=== PATIENT | female | born 1975 | race African-American/Black ===

== ENCOUNTER → 2016-07-19 | Outpatient (CLI) | payer BC ==
[~2016-07-19] MED LIST: ADVIL 200MG TA200 MG PO; AMOXICILLIN 50500 MG PO; BUPROPRION; IRON325 MG PO; LOPRESSOR 225 MG/TAB PO; NAPROSYN500 MG PO; NO HOME MEDICATIONS; NORCO 325 MG-51 TAB PO; NORCO 325 MG-7.1 TAB PO; PRINZIDE 25 MG-1 TAB PO
== END ==
LOC: MC.RAD 12:48
DX: Z12.31 Encounter for screening mammogram for malignant neoplasm of breast (principal)

== ENCOUNTER 2017-01-10 18:39 | Emergency (ER) | payer BC ==
[~2017-01-10] VITALS: Ht 165.1 cm; Wt 96.4 kg
[~2017-01-10 18:39] MED LIST changes: -NAPROSYN500 MG PO
[2017-01-10 18:47] VITALS: BP 138/80; TEMP 99
[2017-01-10] MEDS ORDERED: NAPROSYN500 MG PO (20:24)
[2017-01-10] MEDS ORDERED: NORCO 325 MG-51 TAB PO (20:35)
[2017-01-10 20:37] VITALS: PULSE 71
== END 2017-01-10 20:43 | disposition home or self-care (01) ==
LOC: COL.ER 18:39
DX: M77.11 Lateral epicondylitis, right elbow (principal); I10 Essential (primary) hypertension; Z90.710 Acquired absence of both cervix and uterus

== ENCOUNTER 2017-03-21 14:30 | Outpatient (RCR) | payer BC ==
[~2017-03-21 14:30] MED LIST changes: +NAPROSYN500 MG PO
== END 2017-03-23 08:57 ==
LOC: WSPT 14:30
DX: M77.11 Lateral epicondylitis, right elbow (principal)

== ENCOUNTER → 2017-09-22 | Outpatient (CLI) | payer BC | LOC: MC.RAD 08:31 | DX: Z12.31 Encounter for screening mammogram for malignant neoplasm of breast (principal) ==

== ENCOUNTER 2017-09-25 09:00 | Outpatient (RCR) | payer BC | END 2017-09-28 12:43 | disposition home or self-care (01) | LOC: WSOT 09:00 | DX: M79.641 Pain in right hand (principal); M79.642 Pain in left hand; R20.0 Anesthesia of skin; R20.2 Paresthesia of skin | CPT/HCPCS: G8988-GO; G8989-GO ==

== ENCOUNTER → 2018-02-15 | Outpatient (CLI) | payer BC ==
[~2018-02-15] MED LIST changes: +ALLEGRA ALLERGY60 MG PO; +FLONASE NASAL S16 GM NS
== END ==
LOC: COL.RAD 02-09 12:30
DX: M51.17 Intervertebral disc disorders with radiculopathy, lumbosacral region (principal); M99.73 Connective tissue and disc stenosis of intervertebral foramina of lumbar region

== ENCOUNTER 2020-01-05 18:09 | Emergency (ER) | payer BC, OTHER ==
[~2020-01-05] VITALS: Ht 165.1 cm; Wt 115.5 kg
[2020-01-05 19:13] VITALS: TEMP 98.5
[2020-01-05 20:56] VITALS: BP 158/102; PULSE 85
== END 2020-01-05 20:58 | disposition home or self-care (01) ==
LOC: COL.ER 18:09
DX: M54.5 Low back pain (principal)

== ENCOUNTER 2023-09-21 20:07 | Emergency (ER) | payer BC ==
[~2023-09-21] VITALS: Ht 162.6 cm; Wt 113.6 kg
[2023-09-21 20:40] LABS: BASO % 0.3 % (0.0-2.0); EOS # 0.3 K/mm3 (0.0-0.7); GRAN # 3.4 K/mm3 (1.4-6.5); GRAN % 47.5 % (42.2-75.2); HEMATOCRIT 34.4 % (37.0-47.0); HEMOGLOBIN 10.8 g/dl (12.5-16.0); LYMPH # 2.9 K/mm3 (1.2-3.4); MEAN CELL VOLUME 81 fl (80.0-100.0); MEAN CORPUSCULAR HEMOGLOBIN 26 pg (27-31); MEAN CORPUSCULAR HGB CONC 31 g/dl (33.0-37.0); MEAN PLATELET VOLUME 8.5 fl (7.4-10.4); MONO # 0.6 K/mm3 (0.1-0.6); MONO % 7.9 % (1.7-9.3); PLATELET COUNT 288 K/mm3 (130-400); RED BLOOD COUNT 4.24 M/mm3 (4.10-5.30); REDCELL DISTRIBUTION WIDTH-CV 15.3 % (11.5-14.5)
[2023-09-21 21:08] LABS: ALANINE AMINOTRANSFERASE 15 U/L (0-55); ALBUMIN 3.5 gm/dL (3.5-5.0); ALKALINE PHOSPHATASE 71 U/L (40-150); ANION GAP 11 mmol/L (7-16); AST,SGOT 14 U/L (5-34); BILIRUBIN,TOTAL 0.3 mg/dL (0.2-1.2); BLOOD UREA NITROGEN 12 mg/dL (10-20); CALCIUM 7.9 mg/dL (8.4-10.2); CHLORIDE 105 mmol/L (98-107); GLUCOSE 108 mg/dL (70-99); POTASSIUM 3.3 mmol/L (3.5-4.5); SODIUM 139 mmol/L (136-145); TOTAL PROTEIN 7.8 gm/dL (6.2-8.1)
[2023-09-21 21:54] LABS: TROPONIN-I < 0.010 ng/mL (0.00-0.033)
[2023-09-21] MEDS ORDERED: NORVASC 10MG10 MG PO (22:04)
[2023-09-21 22:17] VITALS: BP 169/96; PULSE 96; TEMP 98.2
== END 2023-09-21 22:17 | disposition home or self-care (01) ==
LOC: COL.ER 20:07
PROVIDERS: Personal Emergency Response Attendant
DX: I10 Essential (primary) hypertension (principal)